=== PATIENT | female | born 1995 | race Caucasian/White ===

== ENCOUNTER 2016-10-01 00:37 | Emergency (ER) | payer MEDICAID ==
[2016-10-01 00:48] VITALS: BMI 26.6
[2016-10-01] MEDS ORDERED: Penicillin G Benzathine 1.2 Mill Unit/2 ml Syr IM STA ×2 (01:08→01:14)
[2016-10-01] MEDS ORDERED: Sodium Chloride 0.9% 1,000 ML IV STA (01:13)
--- NOTE | 2016-10-01 01:13 | ED PDOC ---
Arrival/HPI <Devang Robbins - Last Filed: 10/01/16 01:19> - General Historian: Patient <tiffDarren Greg - Last Filed: 10/01/16 15:33> - General Chief Complaint: Flu-like Symptoms Time Seen by Provider: 10/01/16 00:45 - History of Present Illness Narrative History of Present Illness (Text): 10/01/16 01:09 23yo female present with complaint of sore throat, headache, fever, generalized body ache x 3days. States she have nausea and vomiting yesterday that has resolved. +Odynophagia. Denies dysphagia, drooling, cough, abdominal pain, sick contact, travel. (Darren Kerr A) Past Medical History - Provider Review Nursing Documentation Reviewed: Yes - Psychiatric Hx Substance Use: No <Darren Kerr Greg - Last Filed: 10/01/16 15:33> Family/Social History - Physician Review Nursing Documentation Reviewed: Yes Family/Social History: Unknown Family HX Smoking Status: Never Smoked Hx Alcohol Use: No Hx Substance Use: No <Darren Kerr Greg - Last Filed: 10/01/16 15:33> Allergies/Home Meds <Devang Robbins - Last Filed: 10/01/16 01:19> <CiriloDarren Garza - Last Filed: 10/01/16 15:33> Allergies/Adverse Reactions: Allergies No Known Allergies Allergy (Verified 10/01/16 00:47) Home Medications: Home Meds Medication Instructions Recorded Confirmed No Known Home Med 10/01/16 10/01/16 Review of Systems - Physician Review All systems were reviewed & negative as marked: Yes - Review of Systems Constitutional: Fatigue, Fevers Eyes: Normal ENT: Sore Throat Respiratory: Normal Cardiovascular: Normal Gastrointestinal: Normal Genitourinary Female: Normal Musculoskeletal: Normal Skin: Normal Neurological: Normal Endocrine: Normal Hemo/Lymphatic: Normal Psychiatric: Normal <Darren Kerr Greg - Last Filed: 10/01/16 15:33> Physical Exam Vital Signs Reviewed: Yes Temperature: Febrile Blood Pressure: Normal Pulse: Tachycardic Respiratory Rate: Normal Appearance: Positive for: Well-Appearing, Non-Toxic, Comfortable Pain Distress: None Mental Status: Positive for: Alert and Oriented X 3 - Systems Exam Head: Present: Atraumatic, Normocephalic Pupils: Present: PERRL Extroacular Muscles: Present: EOMI Conjunctiva: Present: Normal Mouth: Present: Moist Mucous Membranes Pharnyx: Present: ERYTHEMA, EXUDATE, TONSILS ENLARGED, Peritonsilar Swelling. No: Uvular Deviation, Muffled/Hoarse Voice, Strider, Soft Palate/Uvular Edema Neck: Present: Normal Range of Motion Respiratory/Chest: Present: Clear to Auscultation, Good Air Exchange. No: Respiratory Distress, Accessory Muscle Use Cardiovascular: Present: Regular Rate and Rhythm, Normal S1, S2. No: Murmurs Abdomen: Present: Normal Bowel Sounds. No: Tenderness, Distention, Peritoneal Signs Back: Present: Normal Inspection Upper Extremity: Present: Normal Inspection. No: Cyanosis, Edema Lower Extremity: Present: Normal Inspection. No: Edema Neurological: Present: GCS=15, CN II-XII Intact, Speech Normal Skin: Present: Warm, Dry, Normal Color. No: Rashes Psychiatric: Present: Alert, Oriented x 3, Normal Insight, Normal Concentration <Darren Kerr - Last Filed: 10/01/16 15:33> Vital Signs Temp Pulse Resp BP Pulse Ox 10/01/16 04:10 98.9 F 94 H 19 117/64 97 10/01/16 00:47 101.3 F H 123 H 20 103/71 98 Medical Decision Making <Devang Robbins - Last Filed: 10/01/16 01:19> <Darren Kerr - Last Filed: 10/01/16 15:33> ED Course and Treatment: 10/01/16 15:31 Pt presented for stated history. She had exudate and swollen tonsil on PE. She was tachy on presentation. Though rapid strep was negative, pt was treated with abx base on PE finding. she was hydrated in ED. On re evaluation her VS improved and pt stated she felt better. she was DC home and referred to her PMD. Advised TRT ED for any new or worsening symptoms. (Darren Kerr) - Lab Interpretations Lab Results: 10/01/16 01:38 10/01/16 01:38 Lab Results 10/01/16 01:38: WBC 13.5 H, RBC 4.45, Hgb 13.0, Hct 38.3, MCV 86.1, MCH 29.2, MCHC 33.9, RDW 12.6, Plt Count 232, MPV 10.3, Neutrophils % (Manual) 72 H, Band Neutrophils % 3 H, Lymphocytes % (Manual) 13 L, Monocytes % (Manual) 11 H, Basophils % (Manual) 1, Dohle Bodies Slight, Platelet Evaluation Normal, Large Platelets Present, Sodium 140, Potassium 3.5 L, Chloride 100, Carbon Dioxide 27 , Anion Gap 17, BUN 18, Creatinine 0.7, Est GFR ( Amer) > 60, Est GFR ( Non-Af Amer) > 60, Random Glucose 105, Calcium 9.3, Total Bilirubin 1.0, AST 23 , ALT 32, Alkaline Phosphatase 76, Total Protein 8.2, Albumin 4.2, Globulin 4.0 , Albumin/Globulin Ratio 1.1 10/01/16 01:00: Influenza Typ A,B (EIA) Negative for flu a/b, Grp A Beta Strep Ag Negative - Medication Orders Current Medication Orders: Discontinued Medications Dexamethasone (Decadron Inj) 10 mg IVP STAT STA Stop: 10/01/16 01:15 Last Admin: 10/01/16 02:10 Dose: 10 MG IVP Administration Document 10/01/16 02:10 MR (Rec: 10/01/16 02:10 [id number]) Charges for Administration # of IVP Administrations 1 Sodium Chloride (Sodium Chloride 0.9%) 1,000 mls @ 999 mls/hr IV .Q1H1M STA Stop: 10/01/16 02:13 Last Admin: 10/01/16 01:44 Dose: 999 MLS/HR eMAR Start Stop Document 10/01/16 01:44 MR (Rec: 10/01/16 01:44 [id number]) Intravenous Solution Start Date 10/01/16 Start Time 01:44 End Date 10/01/16 End time 02:44 Total Infusion Time 60 Lidocaine HCl (Lidocaine 2% Viscous) 15 ml PO Q3H STA Stop: 10/01/16 01:09 Last Admin: 10/01/16 02:10 Dose: 15 ML Penicillin G Benzathine (Bicillin L-A Inj) 1,200,000 units IM STAT STA PRN Reason: Protocol Stop: 10/01/16 01:15 Last Admin: 10/01/16 02:10 Dose: 1,200,000 UNITS IM Administration Charges Document 10/01/16 02:10 MR (Rec: 10/01/16 02:10 [place] [id number] Injection Site MAR Injection Site Left Deltoid Charges for Administration # of IM Administrations 1 - PA / [employer] DIRECT[employer] / Resident Statement / has reviewed & agrees with the documentation as recorded. <Devang Robbins - Last Filed: 10/01/16 01:19> Disposition/Present on Arrival <Devang Robbins - Last Filed: 10/01/16 01:19> - Present on Arrival Any Indicators Present on Arrival: No History of DVT/PE: No History of Uncontrolled Diabetes: No Urinary Catheter: No History of Decub. Ulcer: No History Surgical Site Infection Following: None - Disposition Have Diagnosis and Disposition been Completed?: Yes Disposition Time: 02:20 Patient Plan: Discharge <Darren Kerr - Last Filed: 10/01/16 15:33> - Disposition Diagnosis: Acute tonsillitis Disposition: HOME/ ROUTINE Condition: STABLE Discharge Instructions (ExitCare): Tonsillitis (ED) Additional Instructions: Follow up with your doctor Drink plenty of fluid and rest Return to ED for any new or worsening symptoms Referrals: [facility] [place] - Follow up with primary Forms: SCHOOL NOTE
[2016-10-01 01:49] LABS: HEMATOCRIT 38.3 % (36.0-48.0); MEAN CELL VOLUME 86.1 fL (80.0-105.0); MEAN CORPUSCULAR HEMOGLOBIN 29.2 pg (25.0-35.0); MEAN CORPUSCULAR HGB CONC 33.9 g/dl (31.0-37.0); MEAN PLATELET VOLUME 10.3 fl (7.0-11.0); PLATELET COUNT 232 10^3/uL (120.0-450.0); RED CELL DISTRIBUTION WIDTH 12.6 % (11.5-14.5); WHITE BLOOD COUNT 13.5 10^3/ul (4.5-11.0)
[2016-10-01 01:52] LABS: ADD MANUAL DIFF? YES
[2016-10-01 01:57] LABS: ALB/GLOB RATIO 1.1 (1.1-1.8); ALKALINE PHOSPHATASE 76 U/L (38-133); ALT/SGPT 32 U/L (7-56); AST/SGOT 23 U/L (15-39); BLOOD UREA NITROGEN 18 mg/dL (7-21); CALCIUM 9.3 mg/dL (8.4-10.5); CARBON DIOXIDE 27 mmol/L (21-33); CHLORIDE 100 mmol/L (95-110); GFR AFRICAN-AMERICAN > 60; GLUCOSE,RANDOM 105 mg/dL (70-110); POTASSIUM 3.5 mmol/L (3.6-5.0); SODIUM 140 mmol/L (132-148); TOTAL PROTEIN 8.2 g/dL (5.8-8.3)
[2016-10-01 03:04] LABS: BAND 3 % (0-2); NEUTROPHIL 72 % (50.0-70.0)
[2016-10-01 03:05] LABS: BASOPHIL 1 % (0.0-1.0); PLATELET ESTIMATE NORMAL (NORMAL)
[2016-10-01 03:06] LABS: DOHLE BODIES SLIGHT; LARGE PLATELETS PRESENT
[2016-10-01 04:11] VITALS: BP 117/64; PULSE 94; RESP 19; TEMP 98.9; O2SAT 97
== END 2016-10-01 04:11 | disposition home or self-care (01) ==
LOC: ED 00:37 → EDBD 00:37 → ED 04:11
DX: J03.90 Acute tonsillitis, unspecified (principal)
CPT/HCPCS: 80053; 85025; 87070; 87430; 87804; 96361; 96372; 96374; 99284; J0561; J1100; J7040